=== PATIENT | female | born 1955 | race Caucasian/White ===

== ENCOUNTER 2019-02-11 17:03 | Observation (INO) ==
--- NOTE | 2019-02-11 17:11 | Emergency Department Note ---
Disposition Clinical Impression: Acute exacerbation of chronic obstructive airways disease Disposition: Still a Patient Condition: Fair Referrals: Mildred Massey DO [Primary Care Provider] - Forms: ED Satisfaction Letter Time of Disposition: 23:20 SOB HPI - General Chief Complaint: ED Shortness of Breath/Dyspnea Stated Complaint: BLAKE,DEISY,Cough Time Seen by Provider: 02/11/19 17:11 Source: patient, family Mode of arrival: ambulatory Limitations: no limitations Nursing Notes Reviewed: Yes Vital Signs Reviewed: Yes - History of Present Illness 64-year-old female past medical history of diabetes, heart disease, COPD presenting for 2 months of gradually progressive and worsening dyspnea associated with cough productive of bose sputum, patient also describes severe headache associated with the cough. Patient states that she recently the last 6 months had a abnormal mammogram without follow-up. Patient states that she is concerned that she has cancer. Patient states in addition to the symptoms mentioned above that she has had hot and cold alterations but denies overt fevers and chills. She denies chest pain associated with the dyspnea, patient states that she does not use home oxygen. Patient is on Plavix and Eliquis for anticoagulation due to her history of heart disease with stent placement. Pt Subjective Complaint: shortness of breath, cough Onset (ago): month(s) Severity: severe Consistency/Duration: gradually worsening Improves with: oxygen, bronchodilators, medication Worsens with: movement Known history of: COPD, diabetes, DVT Associated symptoms: Reports: wheezing, sputum production, orthopnea, lower extremity pain, parasthesias, nausea/vomiting Treatment prior to arrival: none Cough present: Yes Cough Description: Voluntary Cough Frequency: Intermittent Sputum production: Yes Sputum Amount: Moderate Sputum Color: Bose - Related Data Home oxygen amount: none Home Medications Medication Instructions Recorded Confirmed Albuterol Sulfate [Albuterol 02/11/19 Inhaler] Amlodipine Besylate 02/11/19 Apixaban [Eliquis] 5 mg PO 02/11/19 Atorvastatin [Lipitor] 02/11/19 Carvedilol [Coreg] 02/11/19 Clopidogrel [Plavix] 02/11/19 Furosemide [Lasix] 40 mg PO 02/11/19 Gabapentin [Neurontin] 300 mg PO TID 02/11/19 02/11/19 Insulin Glargine,Hum.rec.anlog 02/11/19 [Lantus Solostar] Isosorbide MONOnitrate (24 HR) 02/11/19 [Imdur] Meloxicam 15 mg PO 02/11/19 metFORMIN [Glucophage] 500 mg PO 02/11/19 Allergies Allergy/AdvReac Type Severity Reaction Status Date / Time No Known Allergies Allergy Verified 11/19/17 09:12 Review of Systems: *See History of Present Illness for more detail Constitutional: Patient admits to intermittent hot and cold alterations Denies: fever, chills HEENT: Denies dysphagia/odynophagia, lymphadenopathy Cardiovascular: Denies: chest pain Respiratory: Admits: dyspnea, cough, denies: hemoptysis Gastrointestinal: Patient admits to nausea: Denies: abdominal pain, vomiting, diarrhea, constipation, hematemesis, melena, hematochezia Genitourinary: Denies: hematuria Musculoskeletal: Denies: back pain, neck pain Integumentary: Denies: rash Neurological: Admits to headache associated with cough Denies: weakness, lightheadedness/dizziness, numbness, paresthesias, difficulty with ambulation. Endocrine: Denies: fatigue All systems ED: reviewed and negative except as stated. 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 Anterior neck is supple without swelling. *Chest: Symmetric chest wall rise *Heart: Cardiac rhythm and rate are regular with S1 and S2 , no S3 or S4 appreciated, no murmurs, gallops, rubs, or clicks. *Lungs: Patient with wheezes in bilateral upper lung garrett with coarse rhonchi in bilateral lower lobes. There is accessory muscle use as well as prolonged expiratory phase. Patient is in mild to moderate respiratory distress. Abdomen: Abdomen is obese, soft to palpation, normal bowel sounds. No abdominal bruit auscultated. Non-distended, non-rigid, no organomegaly, no ascites appreciated. No pulsatile mass, no tenderness or guarding to palpation in all four quadrants, no rebound Extremities: Normal capillary refill without evidence of pedal edema, joint swelling or erythema. Pulses/motor intact in all 4 extremities. Psychiatric exam: Patient displays a normal affect and mood for the environment. No overt signs of hallucination. Integumentary: warm, dry, intact, normal color. No rash, cyanosis, diaphoresis, erythema, or pallor - General General appearance: alert, in no apparent distress Course Course Narrative: Differential diagnosis includes but is not limited to: Myocardial ischemia COPD exacerbation CHF exacerbation Pneumonia Neoplasm Evaluations: Basic labs to include troponin, BNP, d-dimer, chest x-ray, EKG/old EKG, lactic acid Treatments: Fentanyl, methylprednisolone, DuoNeb's management of patient's symptoms. - Reevaluation(s) Reevaluation #1: Contact by RN stating the patient's blood pressures 230/100 Patient is not yet received fentanyl Possible that this is sympathetically driven We will give IV pain medication as patient is otherwise asymptomatic at this time from a hypertensive standpoint and we will reassess after pain is well controlled. Reevaluation #2: Patient with elevated d-dimer, we will perform CT angiogram of the chest this time. Reevaluation #3: Patient has continued hypertension, was requested by hospitalist at 5 mg labetalol. Happy to comply with this request. Vital Signs Temperature 98.2 F 02/11/19 17:05 Pulse Rate 91 02/11/19 17:05 Respiratory Rate 18 02/11/19 17:05 Blood Pressure 226/117 02/11/19 17:05 O2 Sat by Pulse Oximetry 94 02/11/19 17:05 Temperature 98.2 F 02/11/19 17:05 Pulse Rate 88 02/11/19 20:27 Respiratory Rate 20 02/11/19 20:27 Blood Pressure 220/77 02/11/19 20:27 O2 Sat by Pulse Oximetry 94 02/11/19 20:27 Oxygen Delivery Oxygen Delivery Nasal Cannula Shortness of Breath/Dyspnea - MDM Narrative Medical decision making narrative: Patient has been admitted to hospitalist medicine service is pending placement while still in the ED. Patient care was signed over to the overnight physician team of Dr. Ludin Barrett and Dr. Hilario Tate for further monitoring and intervention if required. Please see documentation by these physicians for any further evaluation, management or intervention. - Lab Data Lab results reviewed: Yes I reviewed the patient's lab results. Result diagrams: 02/11/19 17:33 02/11/19 18:40 Lab Results 02/11/19 02/11/19 02/11/19 Range/Units 17:31 17:33 17:33 WBC 10.7 (4.3-11.1) K/mcL RBC 5.50 H (3.82-4.97) M/mcL Hgb 17.3 H (11.5-15.4) g/dL Hct 50.1 H (35.3-44.9) % MCV 91.1 (83.0-100.0) fL MCH 31.5 (28.0-33.3) pg MCHC 34.5 (31.6-35.5) g/dL RDW 12.6 (11.5-14.5) % Plt Count 211 (140-400) K/mcL MPV 10.0 (9.4-12.4) fL Immature Gran % 0.3 (0-4) % Seg Neutrophils % 57.8 % Lymphocytes % 30.1 % Monocytes % 7.5 % Eosinophils % 3.6 % Basophils % 0.7 % Neutrophils # 6.2 (1.6-8.9) K/mcL Lymphocytes # 3.2 (0.6-4.6) K/mcL Monocytes # 0.8 (0.0-1.3) K/mcL Eosinophils # 0.4 (0.0-0.6) K/mcL Basophils # 0.1 (0.0-0.2) K/mcL PT (9.4-12.1) Seconds INR D-Dimer (0-500) ng/mLFEU Sample Site ABG pH (7.32-7.45) pH Units ABG pCO2 (35-45) mmHg ABG pO2 (85-104) mmHg ABG HCO3 (21-27) mEq/L ABG Total CO2 (20-26) mEq/L ABG O2 Saturation (95-98) % ABG Base Excess (-2 to 3) mEq/L Scot Test O2 Delivery Device Inspired O2 (1-15=lpm ff59-524=%) Sodium (136-145) mEq/L Potassium (3.5-5.1) mEq/L Chloride (98-107) mEq/L Carbon Dioxide (23-29) mEq/L BUN (8-23) mg/dL Creatinine (0.60-1.20) mg/dL Est GFR ( Amer) (> 60) Est GFR (Non-Af Amer) (> 60) BUN/Creatinine Ratio (6-26) Glucose (70-105) mg/dL POC Glucose 142 H (70-99) mg/dL Calculated Osmolality (280-300) Lactic Acid (0.5-2.2) mmol/L Calcium (8.6-10.3) mg/dL Troponin I (< 0.04) ng/mL B-Natriuretic Peptide (Less than 100) pg/mL Urine Color Yellow (Yellow) Urine Clarity Clear (Clear) Urine pH 7.0 (5.0-8.0) pH Units Ur Specific [place] 1.005 L (1.010-1.025) Urine Protein 100 H (Neg-Trace) mg/dL Urine Glucose (UA) Normal (Normal) mg/dL Urine Ketones Negative (Negative) mg/dL Urine Blood Negative (Negative) Urine Nitrite Negative (Negative) Urine Bilirubin Negative (Negative) Urine Urobilinogen Normal (Normal) mg/dL Ur Leukocyte Esterase Negative (Negative) Urine Microscopic RBC 0-3 (0-3) per hpf Urine Microscopic WBC 3-5 H (0-3) per hpf Ur Squamous Epith Cells Moderate H (None-Few) per lpf Urine Bacteria None Seen (None-Few) per hpf Hyaline Casts None Seen (None-Few) per lpf Ur Culture Indicated? NO (NO) Specimen Rejected 02/11/19 02/11/19 02/11/19 Range/Units 17:38 17:41 17:41 WBC (4.3-11.1) K/mcL RBC (3.82-4.97) M/mcL Hgb (11.5-15.4) g/dL Hct (35.3-44.9) % MCV (83.0-100.0) fL MCH (28.0-33.3) pg MCHC (31.6-35.5) g/dL RDW (11.5-14.5) % Plt Count (140-400) K/mcL MPV (9.4-12.4) fL Immature Gran % (0-4) % Seg Neutrophils % % Lymphocytes % % Monocytes % % Eosinophils % % Basophils % % Neutrophils # (1.6-8.9) K/mcL Lymphocytes # (0.6-4.6) K/mcL Monocytes # (0.0-1.3) K/mcL Eosinophils # (0.0-0.6) K/mcL Basophils # (0.0-0.2) K/mcL PT 10.7 (9.4-12.1) Seconds INR 0.9 D-Dimer 767 H (0-500) ng/mLFEU Sample Site R Radial ABG pH 7.43 (7.32-7.45) pH Units ABG pCO2 46 H (35-45) mmHg ABG pO2 62 L (85-104) mmHg ABG HCO3 31 H (21-27) mEq/L ABG Total CO2 32 H (20-26) mEq/L ABG O2 Saturation 92 L (95-98) % ABG Base Excess 5 H (-2 to 3) mEq/L Scot Test Positive O2 Delivery Device Cannula Inspired O2 28.0 (1-15=lpm of18-425=%) Sodium (136-145) mEq/L Potassium (3.5-5.1) mEq/L Chloride (98-107) mEq/L Carbon Dioxide (23-29) mEq/L BUN (8-23) mg/dL Creatinine (0.60-1.20) mg/dL Est GFR ( Amer) (> 60) Est GFR (Non-Af Amer) (> 60) BUN/Creatinine Ratio (6-26) Glucose (70-105) mg/dL POC Glucose (70-99) mg/dL Calculated Osmolality (280-300) Lactic Acid 1.4 (0.5-2.2) mmol/L Calcium (8.6-10.3) mg/dL Troponin I (< 0.04) ng/mL B-Natriuretic Peptide (Less than 100) pg/mL Urine Color (Yellow) Urine Clarity (Clear) Urine pH (5.0-8.0) pH Units Ur Specific [place] (1.010-1.025) Urine Protein (Neg-Trace) mg/dL Urine Glucose (UA) (Normal) mg/dL Urine Ketones (Negative) mg/dL Urine Blood (Negative) Urine Nitrite (Negative) Urine Bilirubin (Negative) Urine Urobilinogen (Normal) mg/dL Ur Leukocyte Esterase (Negative) Urine Microscopic RBC (0-3) per hpf Urine Microscopic WBC (0-3) per hpf Ur Squamous Epith Cells (None-Few) per lpf Urine Bacteria (None-Few) per hpf Hyaline Casts (None-Few) per lpf Ur Culture Indicated? (NO) Specimen Rejected 02/11/19 02/11/19 02/11/19 Range/Units 17:41 17:41 18:12 WBC (4.3-11.1) K/mcL RBC (3.82-4.97) M/mcL Hgb (11.5-15.4) g/dL Hct (35.3-44.9) % MCV (83.0-100.0) fL MCH (28.0-33.3) pg MCHC (31.6-35.5) g/dL RDW (11.5-14.5) % Plt Count (140-400) K/mcL MPV (9.4-12.4) fL Immature Gran % (0-4) % Seg Neutrophils % % Lymphocytes % % Monocytes % % Eosinophils % % Basophils % % Neutrophils # (1.6-8.9) K/mcL Lymphocytes # (0.6-4.6) K/mcL Monocytes # (0.0-1.3) K/mcL Eosinophils # (0.0-0.6) K/mcL Basophils # (0.0-0.2) K/mcL PT (9.4-12.1) Seconds INR D-Dimer (0-500) ng/mLFEU Sample Site ABG pH (7.32-7.45) pH Units ABG pCO2 (35-45) mmHg ABG pO2 (85-104) mmHg ABG HCO3 (21-27) mEq/L ABG Total CO2 (20-26) mEq/L ABG O2 Saturation (95-98) % ABG Base Excess (-2 to 3) mEq/L Scot Test O2 Delivery Device Inspired O2 (1-15=lpm qj03-502=%) Sodium (136-145) mEq/L Potassium (3.5-5.1) mEq/L Chloride (98-107) mEq/L Carbon Dioxide (23-29) mEq/L BUN (8-23) mg/dL Creatinine (0.60-1.20) mg/dL Est GFR ( Amer) (> 60) Est GFR (Non-Af Amer) (> 60) BUN/Creatinine Ratio (6-26) Glucose (70-105) mg/dL POC Glucose (70-99) mg/dL Calculated Osmolality (280-300) Lactic Acid (0.5-2.2) mmol/L Calcium (8.6-10.3) mg/dL Troponin I < 0.03 (< 0.04) ng/mL B-Natriuretic Peptide 287 H (Less than 100) pg/mL Urine Color (Yellow) Urine Clarity (Clear) Urine pH (5.0-8.0) pH Units Ur Specific [place] (1.010-1.025) Urine Protein (Neg-Trace) mg/dL Urine Glucose (UA) (Normal) mg/dL Urine Ketones (Negative) mg/dL Urine Blood (Negative) Urine Nitrite (Negative) Urine Bilirubin (Negative) Urine Urobilinogen (Normal) mg/dL Ur Leukocyte Esterase (Negative) Urine Microscopic RBC (0-3) per hpf Urine Microscopic WBC (0-3) per hpf Ur Squamous Epith Cells (None-Few) per lpf Urine Bacteria (None-Few) per hpf Hyaline Casts (None-Few) per lpf Ur Culture Indicated? (NO) Specimen Rejected Hemolyzed 02/11/19 Range/Units 18:40 WBC (4.3-11.1) K/mcL RBC (3.82-4.97) M/mcL Hgb (11.5-15.4) g/dL Hct (35.3-44.9) % MCV (83.0-100.0) fL MCH (28.0-33.3) pg MCHC (31.6-35.5) g/dL RDW (11.5-14.5) % Plt Count (140-400) K/mcL MPV (9.4-12.4) fL Immature Gran % (0-4) % Seg Neutrophils % % Lymphocytes % % Monocytes % % Eosinophils % % Basophils % % Neutrophils # (1.6-8.9) K/mcL Lymphocytes # (0.6-4.6) K/mcL Monocytes # (0.0-1.3) K/mcL Eosinophils # (0.0-0.6) K/mcL Basophils # (0.0-0.2) K/mcL PT (9.4-12.1) Seconds INR D-Dimer (0-500) ng/mLFEU Sample Site ABG pH (7.32-7.45) pH Units ABG pCO2 (35-45) mmHg ABG pO2 (85-104) mmHg ABG HCO3 (21-27) mEq/L ABG Total CO2 (20-26) mEq/L ABG O2 Saturation (95-98) % ABG Base Excess (-2 to 3) mEq/L Scot Test O2 Delivery Device Inspired O2 (1-15=lpm lj84-515=%) Sodium 137 (136-145) mEq/L Potassium 3.3 L (3.5-5.1) mEq/L Chloride 98 (98-107) mEq/L Carbon Dioxide 28 (23-29) mEq/L BUN 15 (8-23) mg/dL Creatinine 0.67 (0.60-1.20) mg/dL Est GFR ( Amer) > 60 (> 60) Est GFR (Non-Af Amer) > 60 (> 60) BUN/Creatinine Ratio 22 (6-26) Glucose 172 H (70-105) mg/dL POC Glucose (70-99) mg/dL Calculated Osmolality 289 (280-300) Lactic Acid (0.5-2.2) mmol/L Calcium 9.9 (8.6-10.3) mg/dL Troponin I (< 0.04) ng/mL B-Natriuretic Peptide (Less than 100) pg/mL Urine Color (Yellow) Urine Clarity (Clear) Urine pH (5.0-8.0) pH Units Ur Specific [place] (1.010-1.025) Urine Protein (Neg-Trace) mg/dL Urine Glucose (UA) (Normal) mg/dL Urine Ketones (Negative) mg/dL Urine Blood (Negative) Urine Nitrite (Negative) Urine Bilirubin (Negative) Urine Urobilinogen (Normal) mg/dL Ur Leukocyte Esterase (Negative) Urine Microscopic RBC (0-3) per hpf Urine Microscopic WBC (0-3) per hpf Ur Squamous Epith Cells (None-Few) per lpf Urine Bacteria (None-Few) per hpf Hyaline Casts (None-Few) per lpf Ur Culture Indicated? (NO) Specimen Rejected - Radiology Data Radiology results reviewed: Yes I reviewed the patient's radiology results. Chest X-Ray 02/11/19 17:11 IMPRESSION: No radiographic evidence of acute cardiopulmonary disease. D/ / Jovany See / Jovany See Interpreting Provider: Jovany See - EKG Data EKG attestation: Yes I reviewed and interpreted this EKG. EKG results narrative: Patient EKG shows a sinus tachycardia with a right bundle branch block, heart rate in the 100 bpm, FL interval of 171 ms, QR shinto of 161 ms, QT/QTc interval 422/545 ms effectively, there are significant ST segment depressions in the inferior lateral leads with no significant ST segment elevations noted reciprocally, there are no pathologic Q waves, there are abnormal T-wave abnormalities noted in the lateral leads as well as the inferior and lead aVR, there are no signs of acute ischemic change. Unfortunately this time there is no prior EKG available for comparison.
[2019-02-11] MEDS ORDERED: methylPREDNISolone 125 MG/2 ML VIAL IVP ONE (17:26)
[2019-02-11] MEDS ORDERED: Ipratropium/Albuterol Neb 3 ML IH ONE (17:26)
--- NOTE | 2019-02-11 17:32 | Emergency Department Note ---
Disposition Clinical Impression: Acute exacerbation of chronic obstructive airways disease Disposition: Still a Patient Forms: ED Satisfaction Letter Time of Disposition: 17:32 General Adult HPI - General Chief complaint: ED Shortness of Breath/Dyspnea Stated complaint: BLAKE,DEISY,Cough Time Seen by Provider: 02/11/19 17:11 Source: patient Mode of arrival: ambulatory Limitations: no limitations Nursing Notes Reviewed: Yes Vital Signs Reviewed: Yes - History of Present Illness HPI Narrative: Attestation note: Patient was seen with the emergency medicine resident/nurse practitioner/physician technician assistant/transitional resident/medical student: Dr. ELICIA PULIDO. I was present for the significant portions of the performance and interpretation of procedures and EKGs. I have personally performed a face to face evaluation on this patient. I have reviewed and agree with history and physical examination patient management and disposition. 4-year-old female by private vehicle for shortness breath and cough. History of COPD she right hypoxic in the 80s and hypertensive systolic above 200. Neurologically nonfocal patient will have a breathing treatment for expiratory wheezes screening labs chest x-ray screening get some anxiolytics to help relax a little bit control the blood pressure. EKG pending disposition pending. Pain Scale: 10 - Related Data Home Medications Medication Instructions Recorded Confirmed Albuterol Sulfate [Albuterol 02/11/19 Inhaler] Amlodipine Besylate 02/11/19 Apixaban [Eliquis] 5 mg PO 02/11/19 Atorvastatin [Lipitor] 02/11/19 Carvedilol [Coreg] 02/11/19 Clopidogrel [Plavix] 02/11/19 Furosemide [Lasix] 40 mg PO 02/11/19 Gabapentin [Neurontin] 300 mg PO TID 02/11/19 02/11/19 Insulin Glargine,Hum.rec.anlog 02/11/19 [Lantus Solostar] Isosorbide MONOnitrate (24 HR) 02/11/19 [Imdur] Meloxicam 15 mg PO 02/11/19 metFORMIN [Glucophage] 500 mg PO 02/11/19 Allergies Allergy/AdvReac Type Severity Reaction Status Date / Time No Known Allergies Allergy Verified 11/19/17 09:12 Past Medical History - Past Medical History Medical history: Reports: coronary artery disease, diabetes, hypertension, peripheral artery disease 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 - Social History Smoking Status: Current every day smoker Smokeless Tobacco Status: No Alcohol use: Reports: rarely Drug use: Reports: none Physical Exam - General General appearance: alert, in no apparent distress Course Vital Signs Temperature 98.2 F 02/11/19 17:05 Pulse Rate 91 02/11/19 17:05 Respiratory Rate 18 02/11/19 17:05 Blood Pressure 226/117 02/11/19 17:05 O2 Sat by Pulse Oximetry 94 02/11/19 17:05 Temperature 98.2 F 02/11/19 17:05 Pulse Rate 91 02/11/19 17:05 Respiratory Rate 18 02/11/19 17:05 Blood Pressure 226/117 02/11/19 17:05 O2 Sat by Pulse Oximetry 94 02/11/19 17:05 Oxygen Delivery Oxygen Delivery Room Air
[2019-02-11 17:42] LABS: ABG Base Excess 5 mEq/L (-2 to 3); ABG HCO3 31 mEq/L (21-27); ABG Oxygen Saturation 92 % (95-98); ABG PCO2 46 mmHg (35-45); ABG PH 7.43 pH Units (7.32-7.45); ABG PO2 62 mmHg (85-104); ABG TCO2 32 mEq/L (20-26)
[2019-02-11] MEDS ORDERED: *HR* FentaNYL (PF) 100 MCG/2 ML VIAL IVP ONE ×2 (17:44→19:22)
[2019-02-11 17:52] LABS: Basophils # 0.1 K/mcL (0.0-0.2); Basophils % 0.7 %; Eosinophils # 0.4 K/mcL (0.0-0.6); Eosinophils % 3.6 %; Hematocrit 50.1 % (35.3-44.9); Hemoglobin 17.3 g/dL (11.5-15.4); Immature Granulocytes % 0.3 % (0-4); Lymphocytes # 3.2 K/mcL (0.6-4.6); Lymphocytes % 30.1 %; Mean Corpuscular HGB Conc 34.5 g/dL (31.6-35.5); Mean Corpuscular Hemoglobin 31.5 pg (28.0-33.3); Mean Corpuscular Volume 91.1 fL (83.0-100.0); Monocytes # 0.8 K/mcL (0.0-1.3); Monocytes % 7.5 %; Neutrophils # 6.2 K/mcL (1.6-8.9); Platelet Count 211 K/mcL (140-400); Red Cell Distribution Width 12.6 % (11.5-14.5); Segmented Neutrophils % 57.8 %; White Blood Count 10.7 K/mcL (4.3-11.1)
[2019-02-11 17:54] LABS: Bilirubin,Urine Negative (Negative); Blood,Urine Negative (Negative); Clarity,Urine Clear (Clear); Color,Urine Yellow (Yellow); Glucose,Urine (UA) Normal (Normal); Ketones,Urine Negative (Negative); Leukocyte Esterase,Urine Negative (Negative); Nitrite,Urine Negative (Negative); Protein,Urine 100 mg/dL (Neg-Trace); Specific Gravity,Urine 1.005 (1.010-1.025); Urobilinogen,Urine Normal (Normal)
[2019-02-11 17:56] LABS: Bacteria,Urine None Seen per hpf (None-Few); Hyaline Casts,Urine None Seen per lpf (None-Few); RBC,Urine 0-3 per hpf (0-3); Squamous Epithelial Cell,Urine Moderate per lpf (None-Few)
[2019-02-11 18:04] LABS: INR 0.9; Prothrombin Time 10.7 Seconds (9.4-12.1)
[2019-02-11] MEDS ORDERED: amLODIPine 5 MG TABLET PO SCH ×2 (18:30→20:00)
[2019-02-11 19:19] LABS: BUN/Creatinine Ratio 22 (6-26); Blood Urea Nitrogen 15 mg/dL (8-23); Calcium 9.9 mg/dL (8.6-10.3); Carbon Dioxide 28 mEq/L (23-29); Chloride 98 mEq/L (98-107); Glucose 172 mg/dL (70-105); Osmolality,Calculated 289 (280-300); Potassium 3.3 mEq/L (3.5-5.1); Sodium 137 mEq/L (136-145); eGFR For African Americans > 60 (> 60); eGFR For Non-African Americans > 60 (> 60)
[2019-02-11] MEDS ORDERED: Isovue-370 500 ML BOTTLE IVP ONE (19:22)
[2019-02-11] MEDS ORDERED: Nicotine 21 MG PATCH.TD24 TD SCH ×2 (19:30)
[2019-02-11] MEDS ORDERED: Nicotine 21 MG PATCH.TD24 TD STA (19:34)
[2019-02-11] MEDS ORDERED: Ondansetron 4 MG/2 ML VIAL IVP ONE (20:27)
[2019-02-11] MEDS ORDERED: *HR* Labetalol 100 MG/20 ML MDV IVP STA (22:48)
[2019-02-12] MEDS ORDERED: Potassium Chloride Elixir 20 MEQ/15 ML UDC PO ONE (00:35)
[2019-02-12] MEDS ORDERED: Naloxone 0.4 MG/ML INJ IVP PRN (00:36)
[2019-02-12] MEDS ORDERED: Dextrose Gel 15 GM/37.5 ML TUBE PO PRN ×2 (00:36)
[2019-02-12] MEDS ORDERED: *HR* Dextrose 50 % in Water (Syg) 50 ML SYRINGE IVP PRN (00:36)
[2019-02-12] MEDS ORDERED: *HR* OxyCODONE Immed Rel 5 MG TABLET PO PRN (00:36)
[2019-02-12] MEDS ORDERED: traMADol 50 MG TABLET PO PRN (00:36)
[2019-02-12] MEDS: Nicotine 21 MG PATCH.TD24 TD SCH ×2 (01:10→21:17)
[2019-02-12] MEDS: Acetaminophen 325 MG TABLET PO PRN (01:22)
--- NOTE | 2019-02-12 01:54 | Internal Med History&Physical ---
Date of Encounter: 02/12/19 Time of Encounter: 01:53 Internal Medicine - H&P: HPI Chief complaint: SOB Admitted From: Home Plans for Post Hospital Care: Home History of present illness: Miracle Melchor is a 64-year-old woman with diabetes, coronary artery disease, peripheral vascular disease and severe COPD who presents with multiple weeks of increasing shortness of breath and cough productive of grayish sputum. She denies associated fever and chills. She says the only thing she has at home is an albuterol inhaler and this has not been bringing her much relief. She denies associated chest pain and abdominal pain. She tells me she is not on home oxygen and no longer has a nebulizer machine but she will like one. In the ER she was noted to be in moderate respiratory distress and received nebulizer therapy which she tells give her modest improvement. She was also notably hypertensive and received 5 mg of amlodipine and 5 mg of IV labetalol. She is admitted for further care. Vitals: Reviewed General: Skin: HEENT: Moist mucous membranes. No conjunctivae pallor. Neck: No lymphadenopathy. No JVD. No carotid bruits. No palpable thyroid. Chest: Normal thoracic expansion. Normal breath sounds. Clear to auscultation. Heart: Normal S1 & S2; rhythmic. No rubs or murmurs. Abdomen: Non-distended, soft and non-tender to palpation. No peritoneal reaction. Extremities: No clubbing, cyanosis or edema. No calf tenderness. Normal distal pulses. Neurological: Awake, alert and oriented to person, place and time. No focal deficits. Psych: Affect appropriate. Assessment/Plan 1. COPD exacerbation: Moderate in intensity. She continues to smoke a pack daily which is a complicating factor. Will provide supplemental oxygen as needed to keep SpO2>92%. Nebulizer therapy q4hrs. Systemic steroids. Oral azithromycin ordered. 2. CAD: Se has stents in place after an UT. Continue DAPT/Statin. 3. PAD: S/p carotid endarterectomy and lower extremity stenting. Smoking cessation counseling given, DAPT/statin to continue. 4. HTN: Poorly controlled and likely secondary to non-adherence. Will reconci le home medications and resume. 5. Tobacco use: 5 minutes were spent counseling and educating the patient on this habit. career services manager and resources were made available to assist in her endeavor to quit given the plethora of comorbidities she has associated with this. Past Med Surg Social Fam HX - Past Medical History Medical history: coronary artery disease, diabetes, hypertension, peripheral artery disease Psychiatric history: no psych history - Social History Smoking Status: Current every day smoker Smokeless Tobacco Status: No Alcohol use: rarely Drug use: none - Family History Mother Hx Family Cancer: Yes (breast, lungs) Hx Family Endocrine Disorder: Yes (dm) Father Hx Family Cardiac Disorders: Yes (chf) Internal Medicine - H&P: Meds Albuterol Sulfate [Albuterol Inhaler] 2 inh IH Q4HR PRN 02/11/19 [History] Amlodipine Besylate 10 mg PO DAILY 02/11/19 [History] Apixaban [Eliquis] 5 mg PO BID 02/11/19 [History] Atorvastatin [Lipitor] 40 mg PO DAILY 02/11/19 [History] Carvedilol [Coreg] 25 mg PO BID 02/11/19 [History] Clopidogrel [Plavix] 75 mg PO DAILY 02/11/19 [History] Furosemide [Lasix] 40 mg PO DAILY 02/11/19 [History] Gabapentin [Neurontin] 300 mg PO DAILY 02/11/19 [History] Isosorbide MONOnitrate (24 HR) [Imdur] 30 mg PO DAILY 02/11/19 [History] Meloxicam 15 mg PO DAILY 02/11/19 [History] metFORMIN [Glucophage] 500 mg PO DAILY 02/11/19 [History] Insulin Glargine,Hum.rec.anlog [Lantus Solostar] 28 unit SQ HS 02/12/19 [History] Allergy/AdvReac Type Severity Reaction Status Date / Time No Known Allergies Allergy Verified 11/19/17 09:12 All Systems PM: A 10-system review of systems was performed and is negative for pertinent fi ndings except as documented above in the HPI. - Constitutional Vitals: Temp Pulse Resp BP Pulse Ox 98.1 F 82 16 179/75 94 02/12/19 01:02 02/12/19 01:02 02/12/19 01:02 02/12/19 01:02 02/12/19 01:02 Exam: . Internal Med - H&P Results - Labs CBC & Chem 7: 02/11/19 17:33 02/11/19 18:40 Labs: Short CBC 02/11/19 Range/Units 17:33 WBC 10.7 (4.3-11.1) K/mcL Hgb 17.3 H (11.5-15.4) g/dL Hct 50.1 H (35.3-44.9) % Plt Count 211 (140-400) K/mcL Neutrophils # 6.2 (1.6-8.9) K/mcL BMP 02/11/19 18:40 Sodium 137 Potassium 3.3 L Chloride 98 Carbon Dioxide 28 BUN 15 Creatinine 0.67 Glucose 172 H Calcium 9.9 Cardiac Enzymes 02/11/19 Range/Units 17:41 Troponin I < 0.03 (< 0.04) ng/mL Urine 02/11/19 Range/Units 17:33 Urine Color Yellow (Yellow) Urine Clarity Clear (Clear) Urine pH 7.0 (5.0-8.0) pH Units Ur Specific [place] 1.005 L (1.010-1.025) Urine Protein 100 H (Neg-Trace) mg/dL Urine Glucose (UA) Normal (Normal) mg/dL - ABG Interpretation ABG results: 02/11/19 17:38 ABG pH 7.43 ABG pCO2 46 H ABG pO2 62 L ABG HCO3 31 H ABG Total CO2 32 H ABG O2 Saturation 92 L ABG Base Excess 5 H - Impressions ITS Impressions Chest X-Ray 02/11/19 17:11 IMPRESSION: No radiographic evidence of acute cardiopulmonary disease. D/ / Jovany See / Jovany See Interpreting Provider: Jovany See Chest CTA 02/11/19 19:22 IMPRESSION: No evidence pulmonary embolism. Mild basilar ground-glass opacity which could represent atelectasis. Mild edema is also possible. D/ / Jovanna Canas Cha, MD / Jovanna Canas Cha, MD Interpreting Provider: Jovanna Canas Cha, MD - Time Spent With Patient Total time spent is greater than 50% in coordination of care (as documented) at patient's floor/unit and/or counseling patient: Greater than 35 minutes
[2019-02-12] MEDS: Ipratropium/Albuterol Neb 3 ML IH SCH ×3 (03:57→10:49)
[2019-02-12] MEDS ORDERED: *HR* Heparin 5,000 UNIT/ML VIAL SQ SCH (06:00)
[2019-02-12] MEDS: Apixaban 5 MG TABLET PO SCH ×2 (07:59→21:17)
[2019-02-12] MEDS: Azithromycin 250 MG TABLET PO SCH (07:59)
[2019-02-12] MEDS: amLODIPine 5 MG TABLET PO SCH (08:00)
[2019-02-12] MEDS: Furosemide 40 MG TABLET PO SCH (08:00)
[2019-02-12] MEDS: Isosorbide MONOnitrate (24 HR) 30 MG TAB.ER.24H PO SCH (08:00)
[2019-02-12] MEDS: Gabapentin 300 MG CAPSULE PO SCH (08:00)
[2019-02-12] MEDS: Insulin LISPRO 300 UNITS/3 ML VIAL SQ SCH ×3 (08:01→17:08)
[2019-02-12] MEDS ORDERED: Nicotine 21 MG PATCH.TD24 TD SCH (09:00)
[2019-02-12] MEDS ORDERED: predniSONE 20 MG TABLET PO SCH (09:00)
--- NOTE | 2019-02-12 12:07 | Electrocardiograph Report ---
[address] [place], [place] [address] Test Date: 2019-02-11 Pat Name: Miracle Melchor Department: EXAM11 Room: 3B46 Gender: F Metal Stamping Machine Operator: : [id number] Requested By: Gorge Mahan Order Number: [id number] Reading MD: Young Figueroa Measurements Intervals [place] Rate: 100 P: 77 FL: 171 QRS: 87 QRSD: 161 T: -35 QT: 422 QTc: 545 Interpretive Statements Sinus tachycardia Right bundle branch block Repol abnrm suggests ischemia, diffuse leads Electronically Signed On 02-12-2019 12:05:51 EDT by Young Figueroa
--- NOTE | 2019-02-12 14:30 | Internal Med Progress Note ---
Hospitalist Progress Note - Encounter Date of Encounter: 02/12/19 Time of Encounter: 14:28 - Subjective Interval History: Patient was seen and examined at bedside. She still complaining about moderate shortness of breath/dyspnea on exertion. She does have cough with expectoration - Exam Vitals: Temp Pulse Resp BP Pulse Ox 98 F 72 17 146/82 93 02/12/19 11:05 02/12/19 11:05 02/12/19 11:05 02/12/19 11:05 02/12/19 11:05 Exam: Gen: Alert, awake, Oriented to time,place and person Chest: Diminished breath sounds B/L, Moderate wheezing, No crackles, No rales Heart: S1S2+ RRR No murmurs Abd: Soft, NT, BS +, No organomegaly Ext: No edema, pulses are palpable, No calf tenderness Neuro : No acute focal neuro deficits noticed Skin: No rash. - Assessment and Plan (1) Acute exacerbation of chronic obstructive airways disease Current Visit: Yes Status: Acute Assessment and Plan: Still having moderate shortness of breath/[place] increased prednisone to 40 mg b.i.d. continue scheduled bronchodilator therapy currently on 2.5 lit O2 continue empirical antibiotic azithromycin (2) Acute bronchitis Current Visit: Yes Status: Acute Assessment and Plan: Purulent bronchitis continue empirical antibiotic azithromycin (3) Chronic respiratory failure with hypoxia Current Visit: Yes Status: Acute Assessment and Plan: cont above care (4) Tobacco dependence Current Visit: Yes Status: Acute Assessment and Plan: Counseled to quit smoking placed on nicotine patch (5) Hypertension Current Visit: Yes Status: Chronic Assessment and Plan: Stable blood pressure continue home medications (6) CAD (coronary artery disease) Current Visit: Yes Status: Chronic Assessment and Plan: Resumed all home medications (7) PAD (peripheral artery disease) Current Visit: Yes Status: Chronic Assessment and Plan: Continue home medications - Time Spent with Patient Total time spent is greater than 50% in coordination of care (as documented) at patient's floor/unit and/or counseling patient: Internal Medicine: Result - Labs CBC & Chem 7: 02/11/19 17:33 02/11/19 18:40 Labs: Short CBC 02/11/19 Range/Units 17:33 WBC 10.7 (4.3-11.1) K/mcL Hgb 17.3 H (11.5-15.4) g/dL Hct 50.1 H (35.3-44.9) % Plt Count 211 (140-400) K/mcL Neutrophils # 6.2 (1.6-8.9) K/mcL BMP 02/11/19 18:40 Sodium 137 Potassium 3.3 L Chloride 98 Carbon Dioxide 28 BUN 15 Creatinine 0.67 Glucose 172 H Calcium 9.9 Cardiac Enzymes 02/11/19 Range/Units 17:41 Troponin I < 0.03 (< 0.04) ng/mL Urine 02/11/19 Range/Units 17:33 Urine Color Yellow (Yellow) Urine Clarity Clear (Clear) Urine pH 7.0 (5.0-8.0) pH Units Ur Specific [place] 1.005 L (1.010-1.025) Urine Protein 100 H (Neg-Trace) mg/dL Urine Glucose (UA) Normal (Normal) mg/dL - ABG Interpretation ABG results: ABG ABG pH 7.43 pH Units (7.32-7.45) 02/11/19 17:38 ABG pCO2 46 mmHg (35-45) H 02/11/19 17:38 ABG pO2 62 mmHg (85-104) L 02/11/19 17:38 ABG O2 Saturation 92 % (95-98) L 02/11/19 17:38 PT/INR, D-dimer PT 10.7 Seconds (9.4-12.1) 02/11/19 17:41 767 ng/mLFEU (0-500) H 02/11/19 17:41 - Impressions Impressions Chest X-Ray 02/11/19 17:11 IMPRESSION: No radiographic evidence of acute cardiopulmonary disease. D/ / Jovany See / Jovany See Interpreting Provider: Jovany See Chest CTA 02/11/19 19:22 IMPRESSION: No evidence pulmonary embolism. Mild basilar ground-glass opacity which could represent atelectasis. Mild edema is also possible. D/ / Jovanna Canas Cha, MD / Jovanna Canas Cha, MD Interpreting Provider: Jovanna Canas Cha, MD Consult Discharge Plan - Plan Referrals: Mildred Massey DO [Primary Care Provider] - (5) Hypertension Qualifiers: Hypertension type: essential hypertension Qualified Code(s): I10 - Essential (primary) hypertension (6) CAD (coronary artery disease) Qualifiers: Coronary Disease-Associated Artery/Lesion type: [place] artery
[2019-02-12] MEDS: predniSONE 20 MG TABLET PO SCH (17:08)
[2019-02-12] MEDS ORDERED: Insulin DETEMIR 100 UNIT/ML X5UNITS SQ SCH ×2 (21:00→21:30)
[2019-02-12] MEDS ORDERED: Insulin LISPRO 300 UNITS/3 ML VIAL SQ SCH (21:00)
[2019-02-13] MEDS: Insulin LISPRO 300 UNITS/3 ML VIAL SQ SCH ×2 (08:19→13:25)
[2019-02-13] MEDS: predniSONE 20 MG TABLET PO SCH (08:21)
[2019-02-13] MEDS: Isosorbide MONOnitrate (24 HR) 30 MG TAB.ER.24H PO SCH (08:22)
[2019-02-13] MEDS: Furosemide 40 MG TABLET PO SCH (08:22)
[2019-02-13] MEDS: Apixaban 5 MG TABLET PO SCH (08:22)
[2019-02-13] MEDS: Gabapentin 300 MG CAPSULE PO SCH (08:23)
[2019-02-13] MEDS: amLODIPine 5 MG TABLET PO SCH (08:23)
[2019-02-13] MEDS: Azithromycin 250 MG TABLET PO SCH (08:24)
[2019-02-13] MEDS: Acetaminophen 325 MG TABLET PO PRN (08:38)
[2019-02-13 11:12] VITALS: BP 161/70
--- NOTE | 2019-02-13 12:38 | Discharge Summary ---
- NOTES TO OUTPATIENT PROVIDER Notes to Outpatient Provider: f/u with PCP in one week. Please quit smoking. Orders not resulted at time of discharge: Pending orders 02/11/19 17:41 Culture,Blood [BC] Stat 02/11/19 20:38 Culture,Sputum with Gram Stain [RM] Stat Date of Encounter: 02/13/19 Time of Encounter: 12:29 - Discharge Diagnosis (1) Acute exacerbation of chronic obstructive airways disease Priority: Primary Status: Acute (2) Acute bronchitis Priority: Primary Status: Acute Qualifiers: Bronchitis organism: unspecified organism Qualified Code(s): J20.9 - Acute bronchitis, unspecified (3) Chronic respiratory failure with hypoxia Priority: Secondary Status: Acute (4) Tobacco dependence Priority: Secondary Status: Acute (5) Hypertension Priority: Secondary Status: Chronic Qualifiers: Hypertension type: essential hypertension Qualified Code(s): I10 - Essential (primary) hypertension (6) CAD (coronary artery disease) Priority: Secondary Status: Chronic Qualifiers: Coronary Disease-Associated Artery/Lesion type: [place] artery [place] vs. transplanted heart: [place] heart Associated angina: without angina Qualified Code(s): I25.10 - Atherosclerotic heart disease of [place] coronary artery without angina pectoris (7) PAD (peripheral artery disease) Priority: Secondary Status: Chronic Hospital course: Ms. Melchor is a 64 year old female with diabetes, coronary artery disease, peripheral vascular disease and severe COPD, chronic hypoxic respiratory failure supposedly have to use oxygen at home but patient is not using it for a while due to her chronic smoking, now she presented to ER with multiple weeks of increasing shortness of breath and cough productive of grayish sputum. She was admitted in the hospital and started her on systemic steroids, empirical abx and frequent bronchodilator therapy. Pt symptoms improved now and breathing comfortably on 2 lit O2. Will d/c her home in stable condition today with PO steroids and PO Abx. I did senior living sales counselor the pt to quit smoking. - Time Spent with Patient Total time spent providing and/or coordinating discharge services: - Discharge Medications Prescriptions: New Nicotine Patch [Nicoderm] 21 mg TD Q24H #30 patch.td24 predniSONE [PredniSONE] 40 mg PO DAILY #10 tablet Azithromycin [Zithromax] 250 mg PO DAILY #3 tablet Continued Gabapentin [Neurontin] 300 mg PO DAILY metFORMIN [Glucophage] 500 mg PO DAILY Meloxicam 15 mg PO DAILY Isosorbide MONOnitrate (24 HR) [Imdur] 30 mg PO DAILY Furosemide [Lasix] 40 mg PO DAILY Clopidogrel [Plavix] 75 mg PO DAILY Carvedilol [Coreg] 25 mg PO BID Atorvastatin [Lipitor] 40 mg PO DAILY Apixaban [Eliquis] 5 mg PO BID Amlodipine Besylate 10 mg PO DAILY Albuterol Sulfate [Albuterol Inhaler] 2 inh IH Q4HR PRN PRN Reason: Shortness Of Breath Insulin Glargine,Hum.rec.anlog [Lantus Solostar] 28 unit SQ HS Home Medications: Albuterol Sulfate [Albuterol Inhaler] 2 inh IH Q4HR PRN 02/11/19 [History] Amlodipine Besylate 10 mg PO DAILY 02/11/19 [History] Apixaban [Eliquis] 5 mg PO BID 02/11/19 [History] Atorvastatin [Lipitor] 40 mg PO DAILY 02/11/19 [History] Carvedilol [Coreg] 25 mg PO BID 02/11/19 [History] Clopidogrel [Plavix] 75 mg PO DAILY 02/11/19 [History] Furosemide [Lasix] 40 mg PO DAILY 02/11/19 [History] Gabapentin [Neurontin] 300 mg PO DAILY 02/11/19 [History] Isosorbide MONOnitrate (24 HR) [Imdur] 30 mg PO DAILY 02/11/19 [History] Meloxicam 15 mg PO DAILY 02/11/19 [History] metFORMIN [Glucophage] 500 mg PO DAILY 02/11/19 [History] Insulin Glargine,Hum.rec.anlog [Lantus Solostar] 28 unit SQ HS 02/12/19 [History] Azithromycin [Zithromax] 250 mg PO DAILY #3 tablet 02/13/19 [Rx] Nicotine Patch [Nicoderm] 21 mg TD Q24H #30 patch.td24 02/13/19 [Rx] predniSONE [PredniSONE] 40 mg PO DAILY #10 tablet 02/13/19 [Rx] Allergies/Adverse Reactions: Allergy/AdvReac Type Severity Reaction Status Date / Time No Known Allergies Allergy Verified 11/19/17 09:12 Date of admission: 02/11/19 23:30 Primary care physician: Lul Vincent Consults: 02/12/19 09:10 Consult to Nurse Navigator [CONS] Routine Comment: COPD - Constitutional Vitals: Temp Pulse Resp BP Pulse Ox 97.5 F L 60 16 161/70 94 02/13/19 11:07 02/13/19 11:07 02/13/19 11:07 02/13/19 11:07 02/13/19 11:07 General appearance: Present: cooperative, A&O X 3, no acute distress, answers questions appropriately Exam: Gen: Alert, awake, Oriented to time,place and person Chest: Diminished breath sounds B/L, Mild wheezing, No crackles, No rales Heart: S1S2+ RRR No murmurs Abd: Soft, NT, BS +, No organomegaly Ext: No edema, pulses are palpable, No calf tenderness Neuro : No acute focal neuro deficits noticed Skin: No rash. - Patient Status Disposition: Home, Self-Care Condition: Good Overall status at discharge: patient is back to baseline - Discharge Instructions Follow Up With: Mildred Massey DO [Primary Care Provider] - (Appt has been requested. ) Lucio Ng DO [Partnered Physician] - - Diet and Activity Activity: increase activity as tolerated, wear oxygen at all times Diet: low salt diet
== END 2019-02-13 17:45 | disposition home or self-care (01) ==
LOC: EMEROOARM 17:03 → 3BNU 17:03 → SUATTDRO 23:30 → 3BNU 02-12 00:14
PROVIDERS: ADMIT Internal Medicine; ATTEND Family Medicine